=== PATIENT | female | born 1990 | race Caucasian/White ===

== ENCOUNTER 2022-09-22 18:48 | Emergency (ER) | payer OTHER, SELFPAY ==
[2022-09-22 18:53] VITALS: BP 159/113; PULSE 60; RESP 20; TEMP 36.8; O2SAT 100; BMI 26.3
--- NOTE | 2022-09-22 18:58 | CT_ITS ---
The [address] [address] Patient Name: LAYO STERN MRN: [id number] date: 1990 Sex: F Assigned Patient Location: ED.MAIN Current Patient Location: ED.MAIN Accession/Order Number: [id number] Exam Date: 09/22/2022 19:30 Report Date: 09/22/2022 21:06 At the request of: DIEGO LUIS Procedure: CT abdomen pelvis wo con Indication: Flank pain Comparison: None Procedure: Axial images were made from the diaphragms through the symphysis pubis. No oral contrast or intravenous contrast was given. Findings: Liver/Biliary System: No liver masses. No intra or extrahepatic biliary dilatation. No gallstones or cholecystitis. Pancreas/Spleen: No evidence of a pancreatitis. Pancreatic duct is not dilated. No splenomegaly. Kidneys/Adrenals: A 2 mm right renal nonobstructive stone is seen. No left renal stones. No ureteral stones. No hydronephrosis or hydroureter bilaterally. Aorta/Vessels: No evidence of aortic aneurysm. Evaluation of vessels is limited due to lack of IV contrast. Bowel/Fluid/Nodes: No bowel dilatation or bowel wall thickening. No evidence of bowel obstruction. Appendix was not identified, however no secondary signs of appendicitis present. No ascites or fluid collections. No adenopathy. Lung bases: Clear. Other findings: No aggressive osseous lesions are seen. Pelvis: No pelvic masses or adenopathy. No free fluid seen in the pelvis. Bladder, uterus and adnexa are unremarkable. Other Findings: No aggressive osseous lesions are seen. Impression: A 2 mm right renal nonobstructive stone. No left renal stones. No ureteral or bladder stones. No hydronephrosis or hydroureter bilaterally. Electronically authenticated by: DIEGO AMARO Date: 09/22/2022 21:06
[2022-09-22 19:31] LABS: Basophils Percent Auto 0.3 % (0.2-2.0); Eosinophils Percent Auto 0.6 % (0.9-7.0); Hematocrit 41.4 % (36.0-48.0); Hemoglobin 14.4 g/dL (12.0-16.0); Immature Granulocytes Abs Auto 0.01 10^3/uL (0.00-0.03); Immature Granulocytes Pct Auto 0.2 % (0.0-0.5); Lymphocytes Percent Auto 44.5 % (20.5-60.0); Mean Corpuscular HGB Conc 34.8 g/dL (29.9-35.2); Mean Corpuscular Hemoglobin 30.8 pg (26.7-34.0); Mean Corpuscular Volume 88.7 fL (81.0-99.0); Monocytes Absolute Auto 0.5 10^3/uL (0.3-0.8); Monocytes Percent Auto 7.1 % (1.7-12.0); Neutrophils Absolute Auto 3.2 10^3/uL (1.4-6.5); Neutrophils Percent Auto 47.3 % (43.0-75.0); Platelet Count 207 10^3/uL (150-450); Red Blood Count 4.67 10^6/uL (4.20-5.40); Red Cell Distribution Width 12.4 % (11.0-15.0); White Blood Count 6.7 10^3/uL (4.0-11.0)
[2022-09-22 19:32] LABS: Bilirubin Urine NEGATIVE (NEGATIVE); Blood Urine NEGATIVE (NEGATIVE); Clarity Urine CLEAR (CLEAR); Color Urine LT. YELLOW (YELLOW); Glucose Urine UA NEGATIVE (NEGATIVE); Ketones Urine NEGATIVE (NEGATIVE); Leukocyte Esterase Urine NEGATIVE (NEGATIVE); Nitrite Urine NEGATIVE (NEGATIVE); Protein Urine NEGATIVE (NEG/TRACE); Specific Gravity Urine <=1.005 (1.005-1.025); Urobilinogen Urine 0.2 EU/dL (0.2-1.0); pH Urine 5.5 (5.0-9.0)
[2022-09-22 19:37] LABS: Bacteria Urine NONE SEEN #/HPF (NONE SEEN); HCG Qualitative Urine* NEGATIVE (NEGATIVE); RBC Urine 0-2 #/HPF (0-2); WBC Urine NONE SEEN #/HPF (NONE SEEN)
[2022-09-22 19:38] LABS: Cast Seen? NONE SEEN #/LPF (NONE SEEN); Crystals Seen? None Seen #/HPF (None Seen); Mucus Urine NONE SEEN (NONE SEEN); Squamous Epithelial Cell Urine NONE SEEN #/LPF (NONE/RARE); Urine Culture Indicated NO
[2022-09-22 19:46] LABS: Alanine Aminotransferase 24 U/L (14-59); Albumin Globulin Ratio 1.1; Albumin Level 3.5 g/dL (3.4-5.0); Alkaline Phosphatase 87 U/L (46-116); Anion Gap 10.3; Aspartate Amino Transferase 17 U/L (15-37); BUN Creatinine Ratio 16.8; Bilirubin Total 0.2 mg/dL (0.2-1.0); Carbon Dioxide 24.5 mmol/L (21.0-32.0); Chloride 104 mmol/L (98-107); Estimated GFR (African America >60 (>=60); Estimated GFR (Non-African Ame >60 (>=60); Globulin 3.3 g/dL; Glucose 99 mg/dL (74-106); Potassium 3.8 mmol/L (3.5-5.1); Sodium 135 mmol/L (136-145); Total Protein 6.8 g/dL (6.4-8.2)
[2022-09-22] MEDS: 0.9 % SODIUM CHLORIDE 1,000 ML 1000 ML IV (20:02)
[2022-09-22] MEDS: ONDANSETRON PF 4 MG/2 ML VIAL IV (20:03)
[2022-09-22] MEDS: KETOROLAC TROMETHAMINE 30 MG/ML VIAL IVP (20:03)
--- NOTE | 2022-09-22 21:35 | ED.GENADUL1 ---
HPI - General Adult General Chief complaint: Urogenital-Female Stated complaint: KIDNEY STONE Time Seen by Provider: 09/22/22 18:50 Source: patient Mode of arrival: walk-in Limitations: no limitations History of Present Illness HPI narrative: 31-year-old female presents emergency room chief complaint of the lateral lower thoracic upper lumbar pain. She is concerned of a possible kidney stone she's had some nausea. She states the pain occurred probably two hours prior to arrival. She states her are actively trying to get . She denies any burning with urination vaginal discharge or bleeding. States the pain was intense prior to coming in she took medication Tylenol just before coming. Denies any hematuria. Related Data Home Medications Medication Instructions Recorded Confirmed sertraline 25 mg tablet (Zoloft) 25 mg PO DAILY 09/22/22 09/22/22 Previous Rx's Medication Instructions Recorded cyclobenzaprine 10 mg tablet 10 mg PO TID PRN muscle spasm #14 09/22/22 tabs ondansetron 4 mg disintegrating 4 mg PO Q8H PRN nausea and 09/22/22 tablet vomiting 4 days #10 tabs Allergies Allergy/AdvReac Type Severity Reaction Status Date / Time No Known Drug Allergies Allergy Verified 09/22/22 18:59 Review of Systems ROS Narrative All Systems are negative except as noted/marked.All systems reviewed and otherwise negative Exam Narrative Exam Narrative: General: The patient appears well and in no apparent distress. Patient is resting comfortably on cart. Skin: Warm, dry, no pallor noted. There is no rash noted. Head: Normocephalic, atraumatic Eye: Normal conjunctiva, no drainage, EOMI. PERRL Ears, Nose, Mouth, and Throat: oral mucosa is moist. Nares patent. Mouth without vesicles. Ear canals patent. Tm's without Erythema Cardiovascular: Regular Rate and Rhythm Respiratory: Patient is in no distress, no accessory muscle use, lungs are clear to auscultation, no wheezing, rales or rhonchi Back: non-tender, no CVA tenderness bilaterally to percussion. GI: Normal bowel sounds, no tenderness to palpation, no masses appreciated. No rebound, guarding, or rigidity noted. Musculoskeletal: The patient has no evidence of calf tenderness, no pitting edema, symmetrical pulses noted bilaterally Neurological: A&O x4, normal speech Psychiatric: Cooperative Constitutional Vital Signs - 24 hr 09/22/22 18:53 Temperature 98.3 F Pulse Rate [Monitor] 60 Respiratory Rate 20 Blood Pressure [Left Arm] 159/113 H Pulse Oximetry 100 Oxygen Delivery Method Room Air Course Vital Signs Vital signs: Vital Signs Temperature 98.3 F 09/22/22 18:53 Pulse Rate 60 09/22/22 18:53 Respiratory Rate 20 09/22/22 18:53 Blood Pressure 159/113 H 09/22/22 18:53 Pulse Oximetry 100 09/22/22 18:53 Oxygen Delivery Method Room Air 09/22/22 18:53 Temperature 98.3 F 09/22/22 18:53 Pulse Rate 60 09/22/22 18:53 Respiratory Rate 20 09/22/22 18:53 Blood Pressure 159/113 H 09/22/22 18:53 Pulse Oximetry 100 09/22/22 18:53 Oxygen Delivery Method Room Air 09/22/22 18:53 Medical Decision Making MDM Narrative Medical decision making narrative: Indication: Flank pain Comparison: None Procedure: Axial images were made from the diaphragms through the symphysis pubis. No oral contrast or intravenous contrast was given. Findings: Liver/Biliary System: No liver masses. No intra or extrahepatic biliary dilatation. No gallstones or cholecystitis. Pancreas/Spleen: No evidence of a pancreatitis. Pancreatic duct is not dilated. No splenomegaly. Kidneys/Adrenals: A 2 mm right renal nonobstructive stone is seen. No left renal stones. No ureteral stones. No hydronephrosis or hydroureter bilaterally. Aorta/Vessels: No evidence of aortic aneurysm. Evaluation of vessels is limited due to lack of IV contrast. Bowel/Fluid/Nodes: No bowel dilatation or bowel wall thickening. No evidence of bowel obstruction. Appendix was not identified, however no secondary signs of appendicitis present. No ascites or fluid collections. No adenopathy. Lung bases: Clear. Other findings: No aggressive osseous lesions are seen. Pelvis: No pelvic masses or adenopathy. No free fluid seen in the pelvis. Bladder, uterus and adnexa are unremarkable. Other Findings: No aggressive osseous lesions are seen. Impression: A 2 mm right renal nonobstructive stone. No left renal stones. No ureteral or bladder stones. No hydronephrosis or hydroureter bilaterally. Electronically authenticated She presented with a chief complaint of bilateral back pain with occasional nausea. CT scan as above just shows a nonobstructive 2 mm stone in the right side. Nothing on the left. Patient's pain was upper thoracic she was medicated here Toradol and Norflex. I believe her symptoms are more due to muscle strain than kidney stone pain urinalysis unremarkable here. She states she had run on her treadmill for 5 miles yesterday. Notably she has muscle strain. Patient be discharged home encouraged follow-up primary care physician. Differential Diagnosis Differential Diagnosis: Back pain, muscle strain, renal calculi Medical Records Medical records reviewed: Yes I reviewed the patient's medical records Lab Data Lab results reviewed: Yes I reviewed the patient's lab results Labs: Lab Results 09/22/22 Range/Units 19:15 WBC 6.7 (4.0-11.0) 10^3/uL RBC 4.67 (4.20-5.40) 10^6/uL Hgb 14.4 (12.0-16.0) g/dL Hct 41.4 (36.0-48.0) % MCV 88.7 (81.0-99.0) fL MCH 30.8 (26.7-34.0) pg MCHC 34.8 (29.9-35.2) g/dL RDW 12.4 (11.0-15.0) % Plt Count 207 (150-450) 10^3/uL MPV 10.0 (9.5-13.5) fL Neut % (Auto) 47.3 (43.0-75.0) % Lymph % (Auto) 44.5 (20.5-60.0) % [place] % (Auto) 7.1 (1.7-12.0) % Eos % (Auto) 0.6 L (0.9-7.0) % Baso % (Auto) 0.3 (0.2-2.0) % Neut # (Auto) 3.2 (1.4-6.5) 10^3/uL Lymph # (Auto) 3.0 (1.2-3.8) 10^3/uL [place] # (Auto) 0.5 (0.3-0.8) 10^3/uL Eos # (Auto) 0.0 (0.0-0.7) 10^3/uL Baso # (Auto) 0.0 (0.0-0.1) 10^3/uL Abs Immat Gran (auto) 0.01 (0.00-0.03) 10^3/uL Imm/Tot Granulo (auto) 0.2 (0.0-0.5) % Sodium 135 L (136-145) mmol/L Potassium 3.8 (3.5-5.1) mmol/L Chloride 104 (98-107) mmol/L Carbon Dioxide 24.5 (21.0-32.0) mmol/L Anion Gap 10.3 BUN 16.0 (7.0-18.0) mg/dL Creatinine 0.95 (0.55-1.02) mg/dL Est GFR ( Amer) >60 (>=60) Est GFR (Non-Af Amer) >60 (>=60) BUN/Creatinine Ratio 16.8 Glucose 99 (74-106) mg/dL Calcium 9.0 (8.5-10.1) mg/dL Total Bilirubin 0.2 (0.2-1.0) mg/dL AST 17 (15-37) U/L ALT 24 (14-59) U/L Alkaline Phosphatase 87 (46-116) U/L Total Protein 6.8 (6.4-8.2) g/dL Albumin 3.5 (3.4-5.0) g/dL Globulin 3.3 g/dL Albumin/Globulin Ratio 1.1 Lipase 87.0 (73.0-393.0) U/L Urine Color Lt. yellow (YELLOW) Urine Clarity Clear (CLEAR) Urine pH 5.5 (5.0-9.0) Ur Specific [place] <=1.005 A (1.005-1.025) Urine Protein Negative (NEG/TRACE) mg/dL Urine Glucose (UA) Negative (NEGATIVE) mg/dL Urine Ketones Negative (NEGATIVE) mg/dL Urine Occult Blood Negative (NEGATIVE) Urine Nitrite Negative (NEGATIVE) Urine Bilirubin Negative (NEGATIVE) Urine Urobilinogen 0.2 (0.2-1.0) EU/dL Ur Leukocyte Esterase Negative (NEGATIVE) Urine RBC 0-2 (0-2) #/HPF Urine WBC None seen (NONE SEEN) #/HPF Ur Squamous Epith Cells None seen (NONE/RARE) #/LPF Urine Crystals None seen (None Seen) #/HPF Urine Bacteria None seen (NONE SEEN) #/HPF Urine Casts None seen (NONE SEEN) #/LPF Urine Mucus None seen (NONE SEEN) Ur Culture Indicated? No Urine HCG, Qual Negative (NEGATIVE) Discharge Plan Discharge Chief Complaint: Urogenital-Female Clinical Impression: Back pain, Nephrolithiasis Patient Disposition: Home, Self-Care Time of Disposition Decision: 21:36 Condition: Good Prescriptions / Home Meds: New cyclobenzaprine 10 mg tablet 10 mg PO TID PRN (Reason: muscle spasm) Qty: 14 0RF ondansetron 4 mg tablet,disintegrating 4 mg PO Q8H PRN (Reason: nausea and vomiting) 4 Days Qty: 10 0RF No Action sertraline [Zoloft] 25 mg tablet 25 mg PO DAILY Instructions: Kidney Stones (ED), Back Pain (ED) Stand Alone Forms: Portal Instructions Referrals: Physician,Non-Staff, MD [Primary Care Provider] - 1 week Discharge Date/Time: 09/22/22 21:53
[2022-09-22] MEDS: ORPHENADRINE 60 MG/ 2 ML VIAL 30 MG IV (21:38)
== END 2022-09-22 21:53 | disposition home or self-care (01) ==
PROVIDERS: Physician Assistant; Emergency Provider Emergency Medicine
DX: N20.0 Calculus of kidney (principal); M54.9 Dorsalgia, unspecified; Z79.899 Other long term (current) drug therapy
CPT/HCPCS: 36415; 74176; 80053; 81001; 83690; 84703; 85025; 96374; 96375; 99284